=== PATIENT | female | born 1960 | race African-American/Black ===

== ENCOUNTER 2021-01-18 00:04 | Emergency (ER) | payer MEDICAID ==
[~2021-01-18] VITALS: Ht 182.9 cm; Wt 136.1 kg
[2021-01-18 00:08] VITALS: BP_SYST 131
[2021-01-18 01:06] LABS: BILIRUBIN,URINE NEGATIVE (NEGATIVE); BLOOD, URINE NEGATIVE (NEGATIVE); CLARITY/URINE CLEAR (CLEAR); COLOR,URINE YELLOW (YELLOW); GLUCOSE,URINE NEGATIVE (NEGATIVE); KETONES,URINE NEGATIVE (NEGATIVE); LEUKOCYTE ESTERASE ,URINE NEGATIVE (NEGATIVE); NITRITE, URINE NEGATIVE (NEGATIVE); PROTEIN URINE NEGATIVE (NEGATIVE); UROBILINOGEN,URINE 0.2 (0.2-1.0)
[2021-01-18] MEDS ORDERED: ZOLP5TAB2 PO (01:08)
[2021-01-18] MEDS ORDERED: INSU100V SQ (01:08)
[2021-01-18] MEDS ORDERED: LORA-258 PO (01:08)
[2021-01-18] MEDS ORDERED: GLIP10TA11 PO (01:08)
[2021-01-18] MEDS ORDERED: ACET325T53 PO (01:08)
[2021-01-18] MEDS ORDERED: ARIP15TA8 PO (01:08)
[2021-01-18 01:16] LABS: BASOPHILS % (AUTO) 0.5 % (0.0-2.0); CALCIUM 8.5 mg/dL (8.4-11.0); CREATININE 0.75 mg/dL (0.55-1.30); EOSINOPHILS # (AUTO) 0.4 K/uL (0.0-0.4); EOSINOPHILS % (AUTO) 7.9 % (0.0-4.0); HEMATOCRIT 36.6 % (36-48); HEMOGLOBIN 11.7 g/dL (12.0-16.0); LYMPHOCYTES # (AUTO) 2.6 K/uL (1.0-5.5); LYMPHOCYTES % (AUTO) 54.8 % (20.5-51.5); MEAN CORPUSCULAR HEMOGLOBIN 27 pg (27-31); MEAN CORPUSCULAR HGB CONC 32 % (32-36); MEAN CORPUSCULAR VOLUME 85 fL (79.0-98.0); MONOCYTES # (AUTO) 0.4 K/uL (0.0-1.0); NEUTROPHILS # (AUTO) 1.3 K/uL (1.8-7.7); NEUTROPHILS % (AUTO) 27.8 % (40.0-70.0); PLATELET COUNT (AUTO) 152 K/uL (130-430); RED BLOOD CELL COUNT(AUTO) 4.32 MIL/uL (4.2-6.2); RED CELL DISTRIBUTION WIDTH 15.1 % (9.0-15.0); WHITE BLOOD COUNT (AUTO) 4.8 K/uL (4.8-10.8)
[2021-01-18 01:23] LABS: TOTAL BILIRUBIN 0.4 mg/dL (0.0-1.0)
[2021-01-18 07:55] VITALS: BP_SYST 125
== END 2021-01-18 07:55 | disposition home or self-care (01) ==
LOC: SED 00:04
DX: R10.13 Epigastric pain (principal); Z79.899 Other long term (current) drug therapy; Z79.4 Long term (current) use of insulin
CPT/HCPCS: 36415; 80053; 81003; 85025; 99283